=== PATIENT | female | born 1995 | race Caucasian/White ===

== ENCOUNTER 2020-07-05 05:51 | Inpatient (IN) ==
[2020-07-05] MEDS ORDERED: ONDANSETRON 4 MG/2 ML VIAL IV PRN ×2 (07:18→18:12)
[2020-07-05] MEDS ORDERED: MEPERIDINE 50 MG/1 ML VIAL IV PRN (07:18)
[2020-07-05] MEDS: LACTATED RINGERS 1,000 ML IV SCH ×2 (07:18→16:25)
[2020-07-05] MEDS ORDERED: BUTORPHANOL 2 MG/ML VIAL IV PRN (07:18)
[2020-07-05] MEDS ORDERED: OXYTOCIN/LR 20 UNIT/1,000 ML BAG IV SCH (07:30)
[2020-07-05 07:37] LABS: Basophils % 0.5 % (0.0-0.8); Eosinophils # 0.1 10*3/uL (0.0-0.87); Eosinophils % 1.1 % (0.00-10.9); Hemoglobin 10.5 GM/DL (12.0-16.0); Immature Granulocytes % 0.6 %; Immature Granulocytes Absolute 0.05 #; Lymphocytes # 2.1 10*3/uL (1.4-4.0); Lymphocytes % 24.6 % (21.3-54.2); Mean Corpuscular HGB Conc 32.8 GM/DL (32-36); Mean Corpuscular Volume 95.5 FL (87-102); Mean Platelet Volume 11.7 FL (9.6-12.0); Monocytes % 10.9 % (1.7-12.7); Neutrophils % 62.3 % (38.7-73.9); Platelet Count 277 T/CUMM (130-400); Red Blood Count 3.35 MC/CUMM (3.8-5.5); Red Cell Distribution Width 13.7 % (9.3-17.3); White Blood Count 8.6 T/CUMM (4-12)
[2020-07-05 07:57] LABS: Albumin 2.7 G/DL (3.4-5.0); Bilirubin,Total 1.1 MG/DL (0.2-1.0); Calcium 9.3 MG/DL (8.5-10.1); Osmolality,Calculated 269.7 MOS/KG (273-304); Total Protein 6.9 G/DL (6.4-8.3)
[2020-07-05] MEDS ORDERED: LACTATED RINGERS 1,000 ML IV ONE (12:46)
[2020-07-05] MEDS ORDERED: CITRIC ACID/SODIUM CITRATE 30 ML UDCUP PO ONE (12:46)
[2020-07-05] MEDS ORDERED: ePHEDrine 50 MG/ML VIAL IV PRN (12:46)
[2020-07-05] MEDS ORDERED: FAMOTIDINE 20 MG/2 ML VIAL IV ONE (12:46)
[2020-07-05] MEDS ORDERED: NALOXONE 0.4 MG/ML VIAL IV PRN (12:47)
[2020-07-05] MEDS ORDERED: diphenhydrAMINE 50 MG/1 ML VIAL IV PRN ×2 (12:47)
[2020-07-05] MEDS ORDERED: PROMETHAZINE 25 MG/1 ML VIAL IM ONE (12:47)
[2020-07-05] MEDS ORDERED: hydrOXYzine HCL 25 MG/1 ML VIAL IM PRN (12:47)
[2020-07-05] MEDS ORDERED: fentaNYL 2 MCG/ROPIV 0.2% EPID 100 ML EPIDURAL SCH (13:00)
[2020-07-05] MEDS ORDERED: LACTATED RINGERS 1,000 ML IV SCH (13:00)
[2020-07-05 15:44] LABS: Bilirubin,Urine Negative (Negative); Blood, Urine Negative (Negative); Glucose,Urine (UA) Negative (Negative); Ketones,Urine 80 mg/dL (Negative); Mucus,Urine Occasional /LPF (Occasional); Nitrite,Urine Negative (Negative); Protein,Urine Negative; Urine Appearance CLEAR (Clear); Urine Color Straw (Yellow); Urine Specific Gravity 1.009 (1.001-1.035); Urine Urobilinogen < 2.0 EU/DL (0.2-1.0); WBC,Urine <1 /HPF (0-6)
[2020-07-05] MEDS ORDERED: TRANEXAMIC ACID 1,000 MG/10 ML VIAL ONE ×2 (16:43→16:44)
[2020-07-05] MEDS ORDERED: miSOPROStoL 200 MCG TABLET ONE (16:43)
[2020-07-05] MEDS ORDERED: METHYLERGONOVINE 0.2 MG/1 ML AMP ONE (16:43)
[2020-07-05] MEDS ORDERED: LIDOCAINE 1% 50 ML VIAL ONE (16:43)
[2020-07-05] MEDS ORDERED: SODIUM CHLORIDE 0.9% 0 ML IV ONE (16:44)
[2020-07-05] MEDS ORDERED: CARBOPROST TROMETHAMINE 250 MCG/ML AMP IM ONE (16:44)
[2020-07-05] MEDS ORDERED: SODIUM CHLORIDE 0.9% 250 ML IV ONE (16:45)
[2020-07-05 18:12] LABS: Cord Arterial Blood HCO3 20.6 MMOL/L
[2020-07-05] MEDS ORDERED: HYDROCORTISONE 2.5% RECTAL CREAM 30 GM TUBE TOP PRN (18:12)
[2020-07-05] MEDS ORDERED: LANOLIN 50% CREAM 0.3 OZ TUBE TOP PRN (18:12)
[2020-07-05] MEDS ORDERED: OXYTOCIN/LR 20 UNIT/1,000 ML BAG IV ONE (18:12)
[2020-07-05] MEDS ORDERED: oxyCODONE/ACETAMINOPHEN 5-325 MG TABLET PO PRN (18:12)
[2020-07-05] MEDS ORDERED: BISACODYL 10 MG SUPP RECTAL PRN (18:12)
[2020-07-05] MEDS ORDERED: WITCH HAZEL PADS 100/JAR TOP PRN (18:12)
[2020-07-05] MEDS ORDERED: MEASLES/MUMPS/RUBELLA VACCINE 0.5 ML VIAL SUBCUT ONE (18:12)
[2020-07-05] MEDS ORDERED: BENZOCAINE 20%/MENTHOL 0.5% SPRAY 56 GM CAN TOP PRN (18:12)
[2020-07-05] MEDS ORDERED: RHO(D) IMMUNE GLOBULIN 300 MCG SYRINGE IM ONE (18:12)
[2020-07-05] MEDS ORDERED: DIPH/TET/ACEL PERT BOOSTER VACCINE 0.5 ML VIAL IM ONE (18:12)
[2020-07-05] MEDS ORDERED: ACETAMINOPHEN 325 MG TABLET PO PRN (18:12)
[2020-07-05 18:16] LABS: Cord Venous Blood HCO3 20.4 MMOL/L; Cord Venous Blood PO2 34.5
[2020-07-05] MEDS: DOCUSATE SODIUM 100 MG CAPSULE PO SCH (21:15)
[2020-07-05] MEDS: IBUPROFEN 800 MG TABLET PO PRN (21:15)
[2020-07-05] MEDS: oxyCODONE/ACETAMINOPHEN 5-325 MG TABLET PO PRN (21:30)
[2020-07-06] MEDS: oxyCODONE/ACETAMINOPHEN 5-325 MG TABLET PO PRN ×3 (03:23→22:23)
[2020-07-06 04:07] LABS: Basophils # 0.1 10*3/uL (0.0-0.2); Basophils % 0.3 % (0.0-0.8); Eosinophils # 0.1 10*3/uL (0.0-0.87); Eosinophils % 0.4 % (0.00-10.9); Hematocrit 28.8 VOL% (35.7-47.0); Hemoglobin 9.9 GM/DL (12.0-16.0); Immature Granulocytes % 0.6 %; Lymphocytes # 2.9 10*3/uL (1.4-4.0); Lymphocytes % 18.2 % (21.3-54.2); Mean Corpuscular HGB Conc 34.4 GM/DL (32-36); Mean Corpuscular Volume 93.5 FL (87-102); Mean Platelet Volume 11.6 FL (9.6-12.0); Monocytes % 8.4 % (1.7-12.7); Neutrophils % 72.1 % (38.7-73.9); Platelet Count 259 T/CUMM (130-400); Red Blood Count 3.08 MC/CUMM (3.8-5.5); Red Cell Distribution Width 13.7 % (9.3-17.3); White Blood Count 15.8 T/CUMM (4-12)
[2020-07-06] MEDS: IBUPROFEN 800 MG TABLET PO PRN ×2 (05:55→22:16)
[2020-07-06] MEDS: DOCUSATE SODIUM 100 MG CAPSULE PO SCH ×3 (09:55→20:36)
[2020-07-07] MEDS: IBUPROFEN 800 MG TABLET PO PRN ×2 (04:21→09:29)
[2020-07-07 07:55] VITALS: BP 134/92
[2020-07-07] MEDS: DOCUSATE SODIUM 100 MG CAPSULE PO SCH (09:29)
== END 2020-07-07 10:30 | disposition home or self-care (01) | DRG 560 ==
LOC: N.LDOUT 05:51 → N.LD 05:54 → N.OB 21:58
PROVIDERS: ADMIT Obstetrics & Gynecology; ATTEND Obstetrics & Gynecology